=== PATIENT | male | born 1945 | race Caucasian/White ===

== ENCOUNTER → 2019-05-25 | Outpatient (CLI) | payer OTHER ==
--- NOTE | 2019-05-26 16:30 | RAD ---
EXAM DESCRIPTION: Foot,Right 3 Views: CR/DR/XR CLINICAL HISTORY: 73 years Male DIABETES MELLITUS / FOOT ULCER COMPARISON: None. TECHNIQUE: 3 VIEWS AP. Lateral. Oblique. Right foot. FINDINGS: Overall bone density is decreased. Narrowing of the IP joints. Partially radiodense dressing around the midfoot and metatarsals. The lumen is not indicated on the images. Vascular calcifications dorsal and plantar foot also anterior and posterior ankle. Deformities of the posterior and mid subtalar joints. No acute bony abnormality. Minimal soft tissue swelling. No abnormal radiodense objects in the joint spaces or soft tissues. No drea bone destruction identified.. IMPRESSION: Diffuse bone density loss. Midfoot soft tissue swelling most likely related to cellulitis. Soft tissue wound location not indicated on the images. No drea bone destruction visualized. If symptoms persist, consider noncontrast MRI scan right foot.. Electronically signed by: Robert Velásquez MD 05/26/2019 4:29 PM ARRANGER ASSEMBLER
--- NOTE | 2019-05-26 16:43 | US ---
EXAM DESCRIPTION: Extremity,Lower Wilfred Arteries: Ultrasound. CLINICAL HISTORY: CHRONIC VENOUS HTN W ULCER AND INFLAMMATION OF WILFRED LOWER EXTREMITIES COMPARISON: Radiographs right foot 3 views on this visit. TECHNIQUE: Doppler evaluation of the bilateral lower extremity arterial flow waveforms and velocities. FINDINGS: Arterial waveforms in the right lower extremity are multiphasic from the right common femoral artery through the right popliteal artery. Monophasic with good velocity in the right peroneal artery. Monophasic and decreased velocity right DOOR FURRING INSTALLER. Monophasic and velocity less than the DOOR FURRING INSTALLER in the dorsalis pedis artery.. Arterial waveforms in the left lower extremity are biphasic in the left common femoral artery and left femoral artery. Monophasic with good velocity left peroneal artery. Decreased velocity and monophasic left DOOR FURRING INSTALLER. Blunted monophasic waveforms with even more decreased velocity left DPA.. Comments: Monophasic waveforms and significant decrease in velocity bilaterally below the popliteal arteries, except for better velocity in the bilateral peroneal arteries. IMPRESSION: Findings suggestive of significant atherosclerotic occlusive disease bilaterally in the posterior tibial arteries and the dorsalis pedis arteries (distal anterior tibial arteries). Consider CTA, if these findings are discordant with clinical findings. Electronically signed by: Robert Velásquez MD 05/26/2019 4:41 PM PATIENT SERVICE ASSOCIATE
== END ==
LOC: LAB.O 13:47
PROVIDERS: ATTEND Family Medicine
DX: E11.621 Type 2 diabetes mellitus with foot ulcer (principal); E11.22 Type 2 diabetes mellitus with diabetic chronic kidney disease; N18.9 Chronic kidney disease, unspecified; I87.333 Chronic venous hypertension (idiopathic) with ulcer and inflammation of bilateral lower extremity; I77.9 Disorder of arteries and arterioles, unspecified; L97.929 Non-pressure chronic ulcer of unspecified part of left lower leg with unspecified severity; L97.919 Non-pressure chronic ulcer of unspecified part of right lower leg with unspecified severity; L97.409 Non-pressure chronic ulcer of unspecified heel and midfoot with unspecified severity; M79.9 Soft tissue disorder, unspecified; M85.871 Other specified disorders of bone density and structure, right ankle and foot